=== PATIENT | female | born 2000 | race Hispanic/Latino ===

== ENCOUNTER 2024-12-07 15:20 | Emergency (ER) | payer SELFPAY ==
--- NOTE | ~2024-12-07 | US_ITS ---
EXAMINATION: US OB <= 14 weeks fetus INDICATION: abdominal cramping, vaginal bleeding TECHNIQUE: Sonography of the pelvis was performed by transabdominal techniques. COMPARISON: None. RESULT: Uterus: 8.4 x 5.5 x 7.3 cm. Anteverted. Homogenous myometrium. Intrauterine gestational sac: Single present. Mean Sac Diameter: 2.19 cm, corresponding gestational age 7 week 1 days. Yolk sac: 0.6 cm . Embryo: Single present. [place] rump length: 1.44 cm, corresponding gestational age 7 weeks, 5 days. G estational heart rate: present 159 bpm. Subgestational hematoma: Present, measuring 1.2 x 0.3 x 0.3 cm . Right ovary: 3.2 x 1.4 x 1.6 cm. Vascular flow is present. No adnexal mass. Left ovary: 2.7 x 1.8 x 1.8 cm. Vascular flow is present. No adnexal mass. Pelvis free fluid: None. IMPRESSION: Single, live intrauterine gestation. Small subgestational hematoma. Estimated Gestational Age: 7 weeks, 5 days by crown rump length. KAREN by ultrasound 07/23/2025. Reviewed, dictated and finalized at location K. IMPRESSION: Single, live intrauterine gestation. Small subgestational hematoma. Estimated Gestational Age: 7 weeks, 5 days by crown rump length. KAREN by ultras ound 07/23/2025.
[2024-12-07 15:32] VITALS: BP 103/65; PULSE 64; RESP 16; TEMP 36.8; O2SAT 100
--- NOTE | 2024-12-07 15:41 | ED_ITS ---
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 States that this started today. States while she was on the toilet she knows to few drops of blood in the toilet bowl. States that she has not had any cramping today although triage note did mention patient having abdominal cramping. Patient states that she was seen a couple of weeks ago at [facility] and tested positive for . She was told that she needed to have an ultrasound but unable to get this done outpatient. Denies any episodes of heavy bleeding. This would be her 1st make her . Denies any history of miscarriage. Denies lightheadedness, syncope, numbness, weakness, chest pain, shortness of breath, nausea, vomiting, diarrhea, urinary symptom. Denies any other medical history. LNMP from 09/29/24-10/05/24 Related Data Allergies Allergy/AdvReac Type Severity Reaction Status Date / Time No Known Allergies Allergy Verified 12/07/24 15:23 Review of Systems 2 Review of Systems: All systems as dictated in HPI Exam 2 Narrative: GENERAL: Well-appearing, well-nourished, and in no acute distress. HEAD: Normocephalic, atraumatic. EYES: PERRLA and EOMI. ENT: Nares clear, no rhinorrhea or epistaxis. Mucous membranes moist. Oropharynx without tonsillar hypertrophy exudate or other lesions. NECK: Supple. No adenopathy or masses. CHEST: No respiratory distress. Clear to auscultation. No wheezes rales or rhonchi HEART: Regular rate and rhythm. No murmur heard. Normal peripheral pulses. ABDOMEN: Soft, nontender, nondistended, normal active bowel sounds. MSK: Normal range of motion. No edema. SKIN: Warm, dry, no rash. NEURO: Alert and oriented x4. No focal deficits. PSYCH: Normal mood and affect. Course Vital Signs Vital signs: Vital Signs Temperature 98.3 F 12/07/24 15:32 Pulse Rate 64 12/07/24 15:32 Respiratory Rate 16 12/07/24 15:32 Blood Pressure 103/65 12/07/24 15:32 Pulse Oximetry 100 12/07/24 15:32 Temperature 98.3 F 12/07/24 15:32 Pulse Rate 64 12/07/24 15:32 Respiratory Rate 16 12/07/24 15:32 Blood Pressure 103/65 12/07/24 15:32 Pulse Oximetry 100 12/07/24 15:32 MDM - Female Genitourinary MDM Narrative Medical decision making narrative: This is a 24-year-old female who presents to the ED for chief complaint of vaginal bleed during . . Vitals are normal. Exam is unremarkable overall. She is resting comfortably. Lab work lab work shows normal CBC and unremarkable CMP overall. Beta hCG at 53,437. No RhoGAM required today. Obstetrical ultrasound: IMPRESSION: Single, live intrauterine gestation. Small subgestational hematoma. Estimated Gestational Age: 7 weeks, 5 days by crown rump length. KAREN by ultrasound 07/23/2025. Patient is well-appearing on re-evaluation. She feels ready to go home. We discussed the results of workup and ultrasound. I advised that it is still good to take precaution for possible miscarriage, however the above findings are reassuring overall. She has established OB follow-up and will get in touch with them this week. Patient will be discharged in stable condition. Supportive measures discussed and return precautions given. Patient is understanding and agreeable with plan for discharge with PCP follow-up. Lab Data 12/07/24 16:07 12/07/24 16:07 Labs: Lab Results 12/07/24 Range/Units 16:07 WBC 10.1 H (4.5-10.0) K/mm3 RBC 3.92 L (4.2-5.4) M/mm3 Hgb 12.2 (12.0-15.0) g/dL Hct 36.4 L (37.0-47.0) % MCV 92.9 (80-100) fl MCH 31.1 (26-34) pg MCHC 33.5 (32-36) g/dl RDW 12.0 (11.5-14.5) % Plt Count 326 (150-375) k/mm3 MPV 9.1 (7.4-10.4) fl Immature Gran % (Auto) 0.6 H (0-0.5) % Neut % (Auto) 72.5 (45.5-73.1) % Lymph % (Auto) 20.7 (18.3-44.2) % Wetzel % (Auto) 4.9 (2.6-8.5) % Eos % (Auto) 1.0 (0-4.4) % Baso % (Auto) 0.3 (0.2-1.2) % Lymph # (Auto) 2.09 (0.9-3.2) K/mm3 Wetzel # (Auto) 0.5 (0.1-0.6) K/mm3 Eos # (Auto) 0.1 (0-0.3) K/mm3 Baso # (Auto) 0.0 (0.0-0.1) K/mm3 Abs Immat Gran (auto) 0.06 H (0.00-0.031) K/mm3 Absolute Neuts (auto) 7.3 H (1.3-6.7) K/mm3 Absolute Nucleated RBC 0.000 (0.0-0.012) K/mm3 Nucleated RBC % 0.0 (0.0-0.2) % PT 14.2 (11.1-14.7) Seconds INR 1.1 APTT 23.6 (22.3-36.8) Seconds Sodium 137 (137-145) mmol/L Potassium 4.0 (3.4-5.0) mmol/L Chloride 102 (98-107) mmol/L Carbon Dioxide 21 L (22-30) mmol/L Anion Gap 14 H (4-12) mmol/L BUN 12 (7-17) mg/dL Creatinine 0.53 L (0.7-1.0) mg/dL Estim Creat Clear Calc 116 ml/min Estimated GFR > 60 (59 - ) Glucose 99 (65-110) mg/dL Calcium 9.6 (8.4-10.2) mg/dL Total Bilirubin 0.5 (0.2-1.3) mg/dL AST 21 (14-36) U/L ALT 20 (6-35) U/L Alkaline Phosphatase 54 (38-126) U/L Total Protein 8.0 (6.3-8.2) g/dL Albumin 4.8 (3.5-5.1) g/dL Beta HCG, Quant 86512.00 mIU/ML Blood Type O Positive Antibody Screen Negative Screen Not Reportable Baby's Blood Type Not Reportable Baby's DASIA Not Reportable Doses of RhIg Required 0 Discharge Plan Discharge Clinical Impression: Vaginal bleeding affecting early , Intrauterine , Subchorionic hematoma in first trimester Patient Disposition: Home, Self-Care Condition: Stable Instructions: Antibiotic Form Additional Instructions: Your exam today does show a single live in the uterus. There is a small area of bleeding that should self resolve. It is very important that you call your OB office for follow-up on this issue. If you have any new or worsening symptoms please return to the ER for further evaluation. Patient Language: [place] Follow-up/Referrals: Robin Nielsen MD [Physician] - PHYSICIAN,PHOTOGRAPH DEVELOPER [Primary Care Provider] - Time of Disposition: 17:39
--- OUTSIDE RECORDS SUMMARY | 2024-12-07 16:07 | XMS_ITS | Referral Summary ---
Author Organization [facility] Address [address] [place] [address] Care Team Providers Care Fern Cutter Name Role Phone No, Physician Primary Care Provider [phone] Encounters Date Type Department Care Team Description 11/26/2024 12:33 PM MOLD CLOSER HELPER - 11/26/2024 2:19 PM [facility] Emergency Department [address] [place] [id number] Abdominal pain during in first trimester (Primary Dx); Threatened miscarriage in early Discharge Disposition: Discharge to home or self care 11/25/2024 - 11/26/2024 1:04 AM [facility] Emergency Department [address] [place] [phone] Discharge Disposition: ED Dismiss - Never Arrived from Last 3 Months Allergies No known active allergies Medications vit 53-igph-[id number]-d real 27mg iron- 800 mcg-250 mg capsule Take 1 tablet/capsu le by mouth daily 30 capsule 11/26/2024 Active doxylamine-pyri doxine, vit B6, (DICLEGIS) 10-10 mg tablet Take 1 tablet by mouth nightly as needed for nausea 30 tablet 11/26/2024 Active Social History Tobacco Use Types Packs/Day Years Used Date Smoking Tobacco: Never Assessed Personal Safety Answer Date Recorded Have you ever been in or are you currently in a harmful physical or emotional relationship or is someone making you feel afraid or unsafe? Denies 11/26/2024 Comments Yes Sex and Gender Information Value Date Recorded Sex Assigned at Not on file Legal Sex Female 7:27 PM MOLD CLOSER HELPER Gender Identity Female 11/26/2024 11:52 AM MOLD CLOSER HELPER Sexual Orientation Not on file Last Filed Vital Signs Vital Sign Reading Time Taken Comments Blood Pressure 101/54 11/26/2024 2:00 PM MOLD CLOSER HELPER Pulse 58 11/26/2024 2:00 PM MOLD CLOSER HELPER Temperature 36.7 C (98 F) 11/26/2024 10:56 AM MOLD CLOSER HELPER Respiratory Rate 16 11/26/2024 2:00 PM MOLD CLOSER HELPER Oxygen Saturation 100% 11/26/2024 2:00 PM MOLD CLOSER HELPER Inhaled Oxygen Concentration - - Weight 52.7 kg (116 lb 2.9 oz) 11/26/2024 10:56 AM MOLD CLOSER HELPER Height 152.4 cm (5') 11/26/2024 10:56 AM MOLD CLOSER HELPER Body Mass Index 22.69 11/26/2024 10:56 AM MOLD CLOSER HELPER Plan of Treatment Not on file Procedures Procedure Name Priority Date/Time Associated Diagnosis Comments US OB TRANSVAGINAL ED 11/26/2024 11 :56 AM MOLD CLOSER HELPER URINALYSIS, MICROSCOPIC ONLY STAT 11/26/2024 11:13 AM MOLD CLOSER HELPER URINALYSIS AND REFLEX TO MICROSCOPIC AND CULTURE STAT 11/26/2024 11:13 AM MOLD CLOSER HELPER POCT HCG, URINE Routine 11/26/2024 11:09 AM MOLD CLOSER HELPER EGFR STAT 11/26/2024 11:08 AM MOLD CLOSER HELPER DIFFERENTIAL AUTO STAT 11/26/2024 11: 08 AM MOLD CLOSER HELPER ANTIBODY SCREEN STAT 11/26/2024 11:08 AM MOLD CLOSER HELPER ABO/RH STAT 11/26/2024 11:08 AM MOLD CLOSER HELPER TYPE AND SCREEN STAT 11/26/2024 11:08 AM MOLD CLOSER HELPER HCG, BLOOD, QUANTITATIVE STAT 11/26/2024 11:08 AM MOLD CLOSER HELPER LIPASE STAT 11/26/2024 11:08 AM MOLD CLOSER HELPER COMPREHENSIVE METABOLIC PANEL STAT 11/26/2024 11:08 AM MOLD CLOSER HELPER CBC WITH AUTO DIFFERENTIAL STAT 11/26/2024 11:08 AM MOLD CLOSER HELPER from Last 3 Months Results * US Ob Transvaginal (11/26/2024 11:56 AM MOLD CLOSER HELPER) Anatomical Region Laterality Modality Abdomen N/A Ultrasound 11/26/2024 12:2 3 PM MOLD CLOSER HELPER Narrative 11/26/2024 12:26 PM MOLD CLOSER HELPER EXAM DESCRIPTION: US OB TRANSVAGINAL REASON FOR STUDY: rule out ectopic Abdominal pain for couple of days. Beta-hCG: Not available TECHNIQUE: Transvaginal images acquired of the pelvis. COMPARISON: None FINDINGS Intrauterine gestational sac: Present Yolk sac: Present and measures 0.3 cm. Subchorionic bleed: No Mettler-rump length: 0.53 cm heart rate: 98 bpm Gestational age by this ultrasound: 6 weeks 2 days KAREN by this ultrasound: 07/20/2025 Uterus: The uterus is anteverted , measuring 8.6 x 6.2 x 4.7 cm. Right Ovary/Adnexa: The right ovary measures 2.8 x 2.8 x 2.4 cm. There is documentation of color Doppler flow in the right ovary. There is a corpus luteum noted in the right ovary measuring 2.0 x 1.8 x 1.7 cm. Left Ovary/Adnexa: The left ovary measures 2.7 x 1.7 x 1.4 cm. There is documentation of color Doppler flow in the left ovary. The left ovary appears unremarkable. No adnexal mass. Free Fluid: None. Other Findings: None. IMPRESSION: 1. Single live intrauterine gestation with gestational age by the this ultrasound of 6 weeks 3 days and documentation of cardiac activity at 98 beats per minute. Short-term follow-up repeat ultrasound is recommended to assess for viability as clinically indicated. 2. Right ovarian corpus luteum measuring up to 2.0 cm. THIS IS AN ELECTRONICALLY VERIFIED FINAL REPORT 11/26/2024 12:26 PM - Electronically signed by Carlos Dueñas D.O. PS: PS Report ID: [id number] Reading Location: [id number] Procedure Note Carlos Dueñas DO - 11/26/2024 EXAM DESCRIPTION: US OB TRANSVAGINAL REASON FOR STUDY: rule out ectopic Abdominal pain for couple of days. Beta-hCG: Not available TECHNIQUE: Transvaginal images acquired of the pelvis. COMPARISON: None FINDINGS Intrauterine gestational sac: Present Yolk sac: Present and measures 0.3 cm. Subchorionic bleed: No Mettler-rump length: 0.53 cm heart rate: 98 bpm Gestational age by this ultrasound: 6 weeks 2 days KAREN by this ultrasound: 07/20/2025 Uterus: The uterus is anteverted , measuring 8.6 x 6.2 x 4.7 cm. Right Ovary/Adnexa: The right ovary measures 2.8 x 2.8 x 2.4 cm. Thereis documentation of color Doppler flow in the right ovary. There is a corpus luteum noted in the right ovary measuring 2.0 x 1.8 x 1.7 cm. Left Ovary/Adnexa: The left ovary measures 2.7 x 1.7 x 1.4 cm. There is documentation of color Doppler flow in the left ovary. The left ovaryappears unremarkable. No adnexal mass. Free Fluid: None. Other Findings: None. IMPRESSION: 1. Single live intrauterine gestation with gestational age by the this ultrasound of 6 weeks 3 days and documentation of cardiac activityat 98 beats per minute. Short-term follow-up repeat ultrasound is recommendedto assess for viability as clinically indicated. 2. Right ovarian corpus luteum measuring up to 2.0 cm. THIS IS AN ELECTRONICALLY VERIFIED FINAL REPORT 11/26/2024 12:26 PM - Electronically signed by Carlos Dueñas D.O. PS: PS Report ID: [id number] Reading Location: [id number] us Dia BALTAZAR IMG OB US PROCEDURES Final Resu lt * (ABNORMAL) Urinalysis reflex to microscopic and culture Urine (11/26/2024 11:13 AM MOLD CLOSER HELPER) Color, ur Yellow Yellow Comment:Testing performed by : [address] [address] Clarity, ur Cloudy(A) Clear RAJI Comment:Testing performed by : [address] [address] Specific gravity, ur 1.024 1.003 - 1.030 RAJI Comment:Testing performed by : [address], [place]., [address] pH, urine 6.5 RAJI Comment: Interpretive Data U rine pH is affected by diet, medications, systemic acid-base disturbances, and renal tubular function. pH may affect urinary stone formation. For example, urine pH below 6.0 may help reduce the tendency for calcium phosphate stones and pH greater than 6.0 may reduce the tendency for uric acid stone formation. Source: [facility] [employer] Current Interpretive Data was last revised on 2017 Testing performed by: [address] [address] Protein, ur ql Negative Negative RAJI Comment:Testing performed by : [address] [address] Glucose, ur ql Negative Negative RAJI Comment:Testing performed by : [address] [address] Ketones, ur Negative Negative RAJI Comment:Testing performed by : [address] [address] Bilirubin, ur Negative Negative RAJI Comment:Testing performed by : [address] [address] Blood, ur 1+(A) Negative RAJI Comment:Testing performed by : [address] [address] Urobilinogen, ur <2.0 <2.0 mg/dL RAJI Comment:Testing performed by : [address] [address] Nitrite, ur Negative Negative RAJI Comment:Testing performed by : [address] [address] Leukocyte esterase, ur 2+(A) Negative RAJI Comment:Testing performed by : [address] [address] UA reflex comment Reflex to microscopic UA will be performed. RAJI Comment:Testing performed by : [address] [address] Urine 11/26/2024 11:1 3 AM MOLD CLOSER HELPER 11/26/2024 11:39 AM MOLD CLOSER HELPER Coy Brothers MD LAB MICROBIOLOGY - GENERAL ORDERABLES Final Result CARLANANCY [address] [facility] Department [place] [address] * (ABNORMAL) Urinalysis, microscopic only (11/26/2024 11:13 AM MOLD CLOSER HELPER) WBC, ur 6-10(A) 0 - 5 /HPF Comment:Testing performed by : [facility], [address] [place] [address]., [address] RBC, ur 6-10(A) 0 - 2 /HPF RAJI Comment:Testing performed by : [address] [address] Epithelial cells, squamous, ur >50(A) 0 - 5 /HPF RAJI Comment:Testing performed by : [address] [address] Bacteria, ur Trace(A) RAJI Comment:Testing performed by : [address] [address] Yeast, ur 1+(A) RAJI Comment:Testing performed by : [address] [address] Mucous, ur Present(A) RAJI Comment:Testing performed by : [address] [address] Culture Reflex Comment Reflex conditions for urine culture (WBC >10) not met. RAJI Comment:Testing performed by : [address] [address] Urine 11/26/2024 11:1 3 AM MOLD CLOSER HELPER 11/26/2024 11:39 AM MOLD CLOSER HELPER Coy Brothers MD LAB URINE ORDERABLE S Final Result RAJI [address] [facility] Department [place] [address] * (ABNORMAL) POCT hCG, urine (11/26/2024 11:09 AM MOLD CLOSER HELPER) HCG, ur, POC Positive(A) Negative Lot Number [id number] QC Backgroud Clear Acceptable QC Control Line Acceptable Urine 11/26/2024 11:0 9 AM MOLD CLOSER HELPER Coy Brothers MD POINT OF CARE TEST ORDERABLES Final Result * eGFR (11/26/2024 11:08 AM MOLD CLOSER HELPER) Pathologist [facility] [place] eGFR >90 >=60 mL/min/1. 73 m2 Comment: Interpretive Data Reference Interval Normal >/= 90 mL/min/1.73m2 Mildly decreased* 60 - 89 mL/min/1.73m2 Mildly to moderately decreased 45 - 59 mL/min/1.73m2 Moderately to severely decreased 30 - 44 mL/min/1.73m2 Severely decreased 15 - 29 mL/min/1.73m2 Kidney Failure < 15 mL/min/1.73m2 *Relative to young adult level Estimated glomerular filtration rate is determined by the 2020 CKD-EPI equation recommended by the National Kid[employer] (A Unifying Approach to GFR Estimation: Recommendations of the NKF-ASK Task Force on Reassessing the Inclusion of Race in Diagnosing Kidney Disease, JASN 2020). The CKD-EPI equation should not be used for patients with unstable renal function and has not been validated in children and those over 70. Current interpretive data was last reviewed 2021. Testing performed by: [facility], [address] [place] [address]., [address] Blood 11/26/2024 11:0 8 AM MOLD CLOSER HELPER 11/26/2024 11:15 AM MOLD CLOSER HELPER Coy Brothers MD LAB BLOOD ORDERABLE S Final Result RAJI [address] [facility] Department [place] [address] * Differential, auto (11/26/2024 11:08 AM MOLD CLOSER HELPER) Neutrophil abs 5.5 1.5 - 6.5 K/cumm Comment:Testing performed by : [address] [address] Imm gran abs 0.0 0.0 - 0.1 K/cumm RAJI Comment:Testing performed by : [address] [address] Lymphocyte abs 1.1 0.8 - 3.3 K/cumm RAJI Comment:Testing performed by : [address] [address] Monocyte abs 0.4 0.2 - 0.8 K/cumm RAJI Comment:Testing performed by : [address] [address] Eosinophil abs 0.1 0.0 - 0.5 K/cumm RAJI Comment:Testing performed by : [address] [address] Basophil abs 0.0 0.0 - 0.1 K/cumm RAJI Comment:Testing performed by : [address] [address] Neutrophil pct 76.4 % RAJI Comment: Interpretive Data Percent cell count reference ranges are not reported, since discordance with absolute values may lead to misinterpretation of CBC data. Current Interpretive Data was last revised on 2018. Testing performed by: [address] [address] Imm gran pct 0.6 % RAJI Comment: Interpretive Data Percent cell count reference ranges are not reported, since discordance with absolute values may lead to misinterpretation of CBC data. Current Interpretive Data was last revised on 2018. Testing performed by: [address] [address] Lymphocyte pct 15.6 % RAJI Comment: Interpretive Data Percent cell count reference ranges are not reported, since discordance with absolute values may lead to misinterpretation of CBC data. Current Interpretive Data was last revised on 2018. Testing performed by: [address] [address] Monocyte pct 5.9 % RAJI Comment: Interpretive Data Percent cell count reference ranges are not reported, since discordance with absolute values may lead to misinterpretation of CBC data. Current Interpretive Data was last revised on 2018. Testing performed by: [address] [address] Eosinophil pct 1.4 % RAJI Comment: Interpretive Data Percent cell count reference ranges are not reported, since discordance with absolute values may lead to misinterpretation of CBC data. Current Interpretive Data was last revised on 2018. Testing performed by: [address] [address] Basophil pct 0.1 % RAJI Comment: Interpretive Data Percent cell count reference ranges are not reported, since discordance with absolute values may lead to misinterpretation of CBC data. Current Interpretive Data was last revised on 2018. Testing performed by: [address] [address] Blood 11/26/2024 11:0 8 AM MOLD CLOSER HELPER 11/26/2024 11:16 AM MOLD CLOSER HELPER us Coy Brothers MD LAB BLOOD ORDERABLE S Final Result [facility] [address] [facility] Department [place] [address] * CBC with auto differential (11/26/2024 11:08 AM MOLD CLOSER HELPER) WBC 7.2 3.8 - 9.9 K/cumm Comment:Testing performed by : [address] [address] Hgb 12.2 11.9 - 15.5 g/dL RAJI TANNER Comment:Testing performed by : [address] [address] Hct 36.4 35.6 - 45.5 % RAJI Comment:Testing performed by : [address] [address] Plt 314 150 - 400 K/cumm RAJI TANNER Comment:Testing performed by : [address] [address] MPV 9.1 9.1 - 12.3 fL RAJI TANNER Comment:Testing performed by : [address] [address] RBC 3.92 3.90 - 5.20 M/cumm RAJI TANNER Comment:Testing performed by : [address] [address] MCV 92.9 81.3 - 96.4 fL RAJI Comment:Testing performed by : [address] [address] MCH 31.1 27.1 - 33.3 pg RAJI TANNER Comment:Testing performed by : [address], [address] MCHC 33.5 32.3 - 35.7 g/dL RAJI Comment:Testing performed by : [address], [address] RDW CV 12.3 11.1 - 14.9 % RAJI Comment:Testing performed by : [address] [address] RDW SD 42.1 35.7 - 48.1 fL RAJI Comment:Testing performed by : [address] [address] NRBC abs 0.00 0.00 - 0.01 K/cumm RAJI Comment:Testing performed by : [address] [address] Blood Venous blood specimen / Unknown 11/26/2024 11:08 AM MOLD CLOSER HELPER 11/26/2024 11:16 AM MOLD CLOSER HELPER us Coy Brothers MD LAB BLOOD ORDERABLE S Final Result RAJI [address] [facility] Department [place] [address] * ABO/Rh (11/26/2024 11:08 AM MOLD CLOSER HELPER) Pathologist [facility] [place] ABO/Rh O Positive Comment:Testing performed by : [address] [address] Blood 11/26/2024 11:0 8 AM MOLD CLOSER HELPER 11/26/2024 11:15 AM MOLD CLOSER HELPER Narrative [facility] - 11/26/2024 11:46 AM MOLD CLOSER HELPER Has the patient had Daratumumab or Isatuximab in the past 6 months?->Unknown Coy Brothers MD LAB BLOOD BANK TEST ORDERABLES Final Result Performing Organization Address [facility] de Phone Number [address] [place] [employer] [place] [address] * Antibody screen (11/26/2024 11:08 AM MOLD CLOSER HELPER) [facility] Lali, indirect, Gel Interpretation Negative ABSC Comment:Testing performed by : [facility], [address] [place] [address]., [address] Blood 11/26/2024 11:0 8 AM MOLD CLOSER HELPER 11/26/2024 11:15 AM MOLD CLOSER HELPER Narrative [facility] - 11/26/2024 11:54 AM MOLD CLOSER HELPER Has the patient had Daratumumab or Isatuximab in the past 6 months?->Unknown Coy Brothers MD LAB BLOOD BANK TEST ORDERABLES Final Result Performing Organization Address [facility] de Phone Number [address] [place] [place] [address] * (ABNORMAL) hCG, blood, quantitative (11/26/2024 11:08 AM MOLD CLOSER HELPER) [facility] hCG, quant 25,550.0( H) 0.0 - 5.0 IUnits/L Comment: Interpretive Data Male: < 5 IU/L Non- premenopausal Female: <5 IU/L The Rachid hCG Beta Quant assay procedure was used. Results from different manufacturers or methods may not be comparable. Serial testing should be performed using the same method. Interpretive Data was last revised on 2023 Testing performed by: [address] [address] Blood 11/26/2024 11:0 8 AM MOLD CLOSER HELPER 11/26/2024 11:15 AM MOLD CLOSER HELPER Coy Brothers MD LAB BLOOD ORDERABLE S Final Result Performing Organization Address [facility] Co de Phone Number [address] [place] [place] [address] * Lipase (11/26/2024 11:08 AM MOLD CLOSER HELPER) [facility] Lipase 26 10 - 99 Units/L Comment:Testing performed by : [address] [address] Blood Venous blood specimen / Unknown 11/26/2024 11:08 AM MOLD CLOSER HELPER 11/26/2024 11:15 AM MOLD CLOSER HELPER Coy Brothers MD LAB BLOOD ORDERABLE S Final Result Performing Organization Address [facility] de Phone Number [address] [address] * (ABNORMAL) Comprehensive metabolic panel (11/26/2024 11:08 AM MOLD CLOSER HELPER) [facility] Sodium 137 135 - 145 mmol/L Comment:Testing performed by : [address] [address] Potassium, pl 3.7 3.3 - 4.9 mmol/L RAJI Comment:Testing performed by : [address] [address] Chloride 103 97 - 110 mmol/L RAJI Comment:Testing performed by : [address] [address] CO2 23 22 - 32 mmol/L RAJI Comment:Testing performed by : [address] [address] Anion gap 11 2 - 15 mmol/L RAJI Comment:Testing performed by : [address] [address] BUN 9 6 - 25 mg/dL RAJI Comment:Testing performed by : [address] [address] Creatinine 0.54(L) 0.60 - 1.10 mg/dL RAJI Comment:Testing performed by : [address] [address] Glucose 88 70 - 199 mg/dL RAJI Comment: Interpretive Data Fasting glucose >/= 126 mg/dl is diagnostic for diabetes. Fasting is defined as no caloric intake for at least 8 hours. Fasting glucose between 100 mg/dl to 125 mg/dl is diagnostic of prediabetes. In a patient with classic symptoms of hyperglycemia or hyperglycemic crisis, a random glucose >/= 200 mg/dl is diagnostic for diabetes. In the absence of unequivocal hyperglycemia, results should be confirmed by repeat testing. The classification and Diagnosis of Diabetes Diabetes Care 2021; 46: S19-S40. Current interpretive data was last revised 2022. Testing performed by: [address] [address] Calcium 9.9 8.5 - 10.3 mg/dL RAJI Comment:Testing performed by : [address] [address] Bilirubin, total 0.9 0.1 - 1.2 mg/dL RAJI Comment:Testing performed by : [address] [address] Protein, pl 7.5 6.5 - 8.5 g/dL RAJI Comment:Testing performed by : [address] [address] Albumin 4.6 3.5 - 5.0 g/dL RAJI Comment:Testing performed by : [address] [address] Alk phos 55 40 - 130 Units/L RAJI Comment:Testing performed by : [address] [address] ALT 15 7 - 45 Units/L RAJI Comment:Testing performed by : [address], [place]., [address] AST 18 10 - 45 Units/L RAJI TANNER Comment:Testing performed by : [facility], [address] [place] [address]., [address] Blood 11/26/2024 11:0 8 AM MOLD CLOSER HELPER 11/26/2024 11:15 AM MOLD CLOSER HELPER us Coy Brothers MD LAB BLOOD ORDERABLE S Final Result RAJI TANNER [address] [facility] Department of Laboratories [place], [place] [id number] from Last 3 Months Care Teams Fern Cutter Relationship Specialty Start Date End Date No, Physician PCP - General 11/26/24
--- OUTSIDE RECORDS SUMMARY | 2024-12-07 16:07 | XMS_ITS | Clinical Summary ---
Author Organization [facility] Address [address] [place] [address] Care Team Providers Care [employer] Equipment Tender Name Role Phone No, Physician Primary Care Provider [phone] Allergies No known active allergies Medications vit 60-gmrp-pomyx-d real 27mg iron- 800 mcg-250 mg capsule Take 1 tablet/capsu le by mouth daily 30 capsule 11/26/2024 Active doxylamine-pyri doxine, vit B6, (DICLEGIS) 10-10 mg tablet Take 1 tablet by mouth nightly as needed for nausea 30 tablet 11/26/2024 Active Encounters Date Type Department Care Team Description 11/26/2024 12:33 PM PROCESS STEWARD - 11/26/2024 2:19 PM [facility] Emergency Department [address] [place] [address] Abdominal pain during in first trimester (Primary Dx); Threatened miscarriage in early Discharge Disposition: Discharge to home or self care 11/25/2024 - 11/26/2024 1:04 AM [facility] Emergency Department [address] [place] [address] Discharge Disposition: ED Dismiss - Never Arrived from Last 3 Months Social History Tobacco Use Types Packs/Day Years [...] on file Legal Sex Female 7:27 PM PROCESS STEWARD Gender Identity Female 11/26/2024 11:52 AM PROCESS STEWARD Sexual Orientation Not on file Obstetrics History Para Term AB IAB SAB Ectopic Multiple Livin g Live Births 1 Date Outcome GA Total Labor Labor/2nd/3rd Weight Sex Type Anes PTL Stephanie A1 A5 Name Clin Current Last Filed Vital Signs Vital Sign Reading Time Taken Comments Blood Pressure 101/54 11/26/2024 2:00 PM PROCESS STEWARD Pulse 58 11/26/2024 2:00 PM PROCESS STEWARD Temperature 36.7 C (98 F) 11/26/2024 10:56 AM PROCESS STEWARD Respiratory Rate 16 11/26/2024 2:00 PM PROCESS STEWARD Oxygen Saturation 100% 11/26/2024 2:00 PM PROCESS STEWARD Inhaled Oxygen Concentration - - Weight 52.7 kg (116 lb 2.9 oz) 11/26/2024 10:56 AM PROCESS STEWARD Height 152.4 cm (5') 11/26/2024 10:56 AM PROCESS STEWARD Body Mass Index 22.69 11/26/2024 10:56 AM PROCESS STEWARD Plan of Treatment Health Maintenance Due Date Last Done Comments Cervical Cancer Screening 2002 Depression Screening 2002 Hepatitis C Screening 2002 DTaP/Tdap/Td Vaccine (1 - Tdap) 2013 Varicella Vaccines (1 of 2 - 13+ 2-dose series) 2015 HPV Vaccines (1 - 3-dose series) 2017 Meningococcal B Vaccine (1 o f 2 - Standard) 2018 Hepatitis B Screening 01/30/2020 Regular Well Visit/Exam 18-64 01/30/2020 Influenza Vaccine (#1) 2024 Pneumococcal vaccine <65 Aged Out No longer eligible based on patient's age to complete this topic Procedures Procedure Name Priority Date/Time Associated Diagnosis Comments US OB TRANSVAGINAL ED 11/26/2024 11 :56 AM PROCESS STEWARD URINALYSIS, MICROSCOPIC ONLY STAT 11/26/2024 11:13 AM PROCESS STEWARD URINALYSIS AND REFLEX TO MICROSCOPIC AND CULTURE STAT 11/26/2024 11:13 AM PROCESS STEWARD POCT HCG, URINE Routine 11/26/2024 11:09 AM PROCESS STEWARD EGFR STAT 11/26/2024 11:08 AM PROCESS STEWARD DIFFERENTIAL AUTO STAT 11/26/2024 11: 08 AM PROCESS STEWARD ANTIBODY SCREEN STAT 11/26/2024 11:08 AM PROCESS STEWARD ABO/RH STAT 11/26/2024 11:08 AM PROCESS STEWARD TYPE AND SCREEN STAT 11/26/2024 11:08 AM PROCESS STEWARD HCG, BLOOD, QUANTITATIVE STAT 11/26/2024 11:08 AM PROCESS STEWARD LIPASE STAT 11/26/2024 11:08 AM PROCESS STEWARD COMPREHENSIVE METABOLIC PANEL STAT 11/26/2024 11:08 AM PROCESS STEWARD CBC WITH AUTO DIFFERENTIAL STAT 11/26/2024 11:08 AM PROCESS STEWARD from Last 3 Months Results * US Ob Transvaginal (11/26/2024 11:56 AM PROCESS STEWARD) Anatomical Region Laterality Modality Abdomen N/A Ultrasound 11/26/2024 12:2 3 PM PROCESS STEWARD Narrative 11/26/2024 12:26 PM PROCESS STEWARD EXAM DESCRIPTION: US OB TRANSVAGINAL REASON FOR STUDY: rule out ectopic Abdominal pain for couple of days. Beta-hCG: Not available TECHNIQUE: Transvaginal images acquired of the pelvis. COMPARISON: None FINDINGS Intrauterine gestational sac: Present Yolk sac: Present and measures 0.3 cm. Subchorionic bleed: No Farnam-rump length: 0.53 cm heart rate: 98 bpm [...] Carlos Dueñas D.O. PS: PS Report ID: [id number] Reading Location: [id number] Procedure Note Carlos Dueñas, DO - 11/26/2024 EXAM DESCRIPTION: US OB TRANSVAGINAL REASON FOR STUDY: rule out ectopic Abdominal pain for couple of days. Beta-hCG: Not available TECHNIQUE: Transvaginal images acquired of the pelvis. COMPARISON: None FINDINGS Intrauterine gestational sac: Present Yolk sac: Present and measures 0.3 cm. Subchorionic bleed: No Farnam-rump length: 0.53 cm heart rate: 98 bpm [...] Carlos Dueñas D.O. PS: PS Report ID: [id number] Reading Location: [place] [address] us Dia BALTAZAR IMG OB US PROCEDURES Final Resu lt * (ABNORMAL) Urinalysis reflex to microscopic and culture Urine (11/26/2024 11:13 AM PROCESS STEWARD) Color, ur Yellow Yellow Comment:Testing performed by : [address] [address] Clarity, ur Cloudy(A) Clear RAJI Comment:Testing performed by : [address] [address] Specific gravity, ur 1.024 1.003 - 1.030 RAJI Comment:Testing performed by : [address] [address] pH, urine 6.5 RAJI Comment: Interpretive Data U rine pH is affected by diet, medications, systemic acid-base disturbances, and renal tubular function. pH may affect urinary stone formation. For example, urine pH below 6.0 may help reduce the tendency for calcium phosphate stones and pH greater than 6.0 may reduce the tendency for uric acid stone formation. Source: meinKauf Current Interpretive Data was last revised on 2017 Testing performed by: [address] [address] Protein, ur ql Negative Negative RAJI Comment:Testing performed by : [address] [address] Glucose, ur ql Negative Negative RAJI Comment:Testing performed by : [address] [address] Ketones, ur Negative Negative RAJI Comment:Testing performed by : [address] [address] Bilirubin, ur Negative Negative RAJI Comment:Testing performed by : [address], [place]., [address] Blood, ur 1+(A) Negative RAJI TANNER Comment:Testing performed by : [facility], [address] [place] [address], [place]., [address] Urobilinogen, ur <2.0 <2.0 mg/dL RAJI Comment:Testing performed by : [address], [place]., [address] Nitrite, ur Negative Negative RAJI Comment:Testing performed by : [address], [place]., [address] Leukocyte esterase, ur 2+(A) Negative RAJI Comment:Testing performed by : [address], [place]., [address] UA reflex comment Reflex to microscopic UA will be performed. RAJI Comment:Testing performed by : [address], [place]., [address] Urine 11/26/2024 11:1 3 AM PROCESS STEWARD 11/26/2024 11:39 AM PROCESS STEWARD us Coy Brothers MD LAB MICROBIOLOGY - GENERAL ORDERABLES Final Result RAJI [address] [facility] Department of Laboratories [place], [place] [id number] * (ABNORMAL) Urinalysis, microscopic only (11/26/2024 11:13 AM PROCESS STEWARD) WBC, ur 6-10(A) 0 - 5 /HPF Comment:Testing performed by : [address], [place]., [address] RBC, ur 6-10(A) 0 - 2 /HPF RAJI TANNRE Comment:Testing performed by : [address] [address] Epithelial cells, squamous, ur >50(A) 0 - 5 /HPF RAJI Comment:Testing performed by : [address], [place]., [address] Bacteria, ur Trace(A) RAJI TANNER Comment:Testing performed by : [facility], [address] [place] [address]., [address] Yeast, ur 1+(A) RAJI Comment:Testing performed by : [address] [address] Mucous, ur Present(A) RAJI Comment:Testing performed by : [address] [address] Culture Reflex Comment Reflex conditions for urine culture (WBC >10) not met. RAJI Comment:Testing performed by : [address], [place]., [address] Urine 11/26/2024 11:1 3 AM PROCESS STEWARD 11/26/2024 11:39 AM PROCESS STEWARD Coy Brothers MD LAB URINE ORDERABLE S Final Result RAJI [facility] Department [place] [address] * (ABNORMAL) POCT hCG, urine (11/26/2024 11:09 AM PROCESS STEWARD) Pathologist [facility] HCG, ur, POC Positive(A) Negative Lot Number [id number] QC Backgroud Clear Acceptable QC Control Line Acceptable Urine 11/26/2024 11:0 9 AM PROCESS STEWARD Coy Brothers MD POINT OF CARE TEST ORDERABLES Final Result * eGFR (11/26/2024 11:08 AM PROCESS STEWARD) eGFR >90 >=60 mL/min/1. 73 m2 Comment: [...] was last reviewed 2021. Testing performed by: [address] [address] Blood 11/26/2024 11:0 8 AM PROCESS STEWARD 11/26/2024 11:15 AM PROCESS STEWARD us Coy Brothers MD LAB BLOOD ORDERABLE S Final Result RAJI [facility] Department [place] [address] * Differential, auto (11/26/2024 11:08 AM PROCESS STEWARD) Neutrophil abs 5.5 1.5 - 6.5 K/cumm Comment:Testing performed by : [address] [address] Imm gran abs 0.0 0.0 - 0.1 K/cumm RAJI Comment:Testing performed by : [address] [address] Lymphocyte abs 1.1 0.8 - 3.3 K/cumm RAJI Comment:Testing performed by : [address] [address] Monocyte abs 0.4 0.2 - 0.8 K/cumm RAJI Comment:Testing performed by : [address] [address] Eosinophil abs 0.1 0.0 - 0.5 K/cumm RAJI Comment:Testing performed by : [address] [address] Basophil abs 0.0 0.0 - 0.1 K/cumm RAJI Comment:Testing performed by : [address] [address] Neutrophil pct 76.4 % CERNER Comment: Interpretive Data Percent cell count reference ranges are not reported, since discordance with absolute values may lead to misinterpretation of CBC data. Current Interpretive Data was last revised on 2018. Testing performed by: [address] [address] Imm gran pct 0.6 % [facility] Comment: Interpretive Data Percent cell count reference ranges are not reported, since discordance with absolute values may lead to misinterpretation of CBC data. Current Interpretive Data was last revised on 2018. Testing performed by: [address] [address] Lymphocyte pct 15.6 % [facility] Comment: Interpretive Data Percent cell count reference ranges are not reported, since discordance with absolute values may lead to misinterpretation of CBC data. Current Interpretive Data was last revised on 2018. Testing performed by: [address] [address] Monocyte pct 5.9 % [facility] Comment: Interpretive Data Percent cell count reference ranges are not reported, since discordance with absolute values may lead to misinterpretation of CBC data. Current Interpretive Data was last revised on 2018. Testing performed by: [address] [address] Eosinophil pct 1.4 % CERNER Comment: Interpretive Data Percent cell count reference ranges are not reported, since discordance with absolute values may lead to misinterpretation of CBC data. Current Interpretive Data was last revised on 2018. Testing performed by: [address] [address] Basophil pct 0.1 % [facility] Comment: Interpretive Data Percent cell count reference ranges are not reported, since discordance with absolute values may lead to misinterpretation of CBC data. Current Interpretive Data was last revised on 2018. Testing performed by: [address] [address] Blood 11/26/2024 11:0 8 AM PROCESS STEWARD 11/26/2024 11:16 AM PROCESS STEWARD us Coy Brothers MD LAB BLOOD ORDERABLE S Final Result RAJI [address] [facility] Department [place] [address] * CBC with auto differential (11/26/2024 11:08 AM PROCESS STEWARD) WBC 7.2 3.8 - 9.9 K/cumm Comment:Testing performed by : [address] [address] Hgb 12.2 11.9 - 15.5 g/dL RAJI Comment:Testing performed by : [address] [address] Hct 36.4 35.6 - 45.5 % RAJI Comment:Testing performed by : [address] [address] Plt 314 150 - 400 K/cumm RAJI Comment:Testing performed by : [address] [address] MPV 9.1 9.1 - 12.3 fL RAJI Comment:Testing performed by : [address] [address] RBC 3.92 3.90 - 5.20 M/cumm RAJI Comment:Testing performed by : [address] [address] MCV 92.9 81.3 - 96.4 fL RAJI Comment:Testing performed by : [address] [address] MCH 31.1 27.1 - 33.3 pg RAJI Comment:Testing performed by : [address] [address] MCHC 33.5 32.3 - 35.7 g/dL RAJI Comment:Testing performed by : [address], [address] RDW CV 12.3 11.1 - 14.9 % RAJI Comment:Testing performed by : [address], [address] RDW SD 42.1 35.7 - 48.1 fL RAJI Comment:Testing performed by : [address] [address] NRBC abs 0.00 0.00 - 0.01 K/cumm RAJI Comment:Testing performed by : [address], [address] Blood Venous blood specimen / Unknown 11/26/2024 11:08 AM PROCESS STEWARD 11/26/2024 11:16 AM PROCESS STEWARD Coy Brothers MD LAB BLOOD ORDERABLE S Final Result Performing Organization Address [facility] Co de Phone Number CARLA[address] [place] [address] * ABO/Rh (11/26/2024 11:08 AM PROCESS STEWARD) ABO/Rh O Positive Comment:Testing performed by : [address], [address] Blood 11/26/2024 11:0 8 AM PROCESS STEWARD 11/26/2024 11:15 AM PROCESS STEWARD Narrative RAJI - 11/26/2024 11:46 AM PROCESS STEWARD Has the patient had Daratumumab or Isatuximab in the past 6 months?->Unknown Coy Brothers MD LAB BLOOD BANK TEST ORDERABLES Final Result Performing Organization Address [facility] Co de Phone Number [address] [place] [address] * Antibody screen (11/26/2024 11:08 AM PROCESS STEWARD) Lali, indirect, Gel Interpretation Negative ABSC Comment:Testing performed by : [address], [address] Blood 11/26/2024 11:0 8 AM PROCESS STEWARD 11/26/2024 11:15 AM PROCESS STEWARD Narrative RAJI - 11/26/2024 11:54 AM PROCESS STEWARD Has the patient had Daratumumab or Isatuximab in the past 6 months?->Unknown Coy Brothers MD LAB BLOOD BANK TEST ORDERABLES Final Result RAJI [address] [place] [address] * (ABNORMAL) hCG, blood, quantitative (11/26/2024 11:08 AM PROCESS STEWARD) [facility] hCG, quant 25,550.0( H) 0.0 - 5.0 IUnits/L Comment: Interpretive Data Male: < 5 IU/L Non- premenopausal Female: <5 IU/L The Rachid hCG Beta Quant assay procedure was used. Results from different manufacturers or methods may not be comparable. Serial testing should be performed using the same method. Interpretive Data was last revised on 2023 Testing performed by: [address] [address] Blood 11/26/2024 11:0 8 AM PROCESS STEWARD 11/26/2024 11:15 AM PROCESS STEWARD Coy Brothers MD LAB BLOOD ORDERABLE S Final Result Performing Organization Address [facility] Co de Phone Number CARLA[address] [place] [address] * Lipase (11/26/2024 11:08 AM PROCESS STEWARD) [facility] Lipase 26 10 - 99 Units/L Comment:Testing performed by : [address] [address] Blood Venous blood specimen / Unknown 11/26/2024 11:08 AM PROCESS STEWARD 11/26/2024 11:15 AM PROCESS STEWARD Coy Brothers MD LAB BLOOD ORDERABLE S Final Result RAJI [address] [place] [address] * (ABNORMAL) Comprehensive metabolic panel (11/26/2024 11:08 AM PROCESS STEWARD) Sodium 137 135 - 145 mmol/L Comment:Testing performed by : [address] [address] Potassium, pl 3.7 3.3 - 4.9 mmol/L RAJI Comment:Testing performed by : [address] [address] Chloride 103 97 - 110 mmol/L RAJI Comment:Testing performed by : [address] [address] CO2 23 22 - 32 mmol/L RAJI Comment:Testing performed by : [address] [address] Anion gap 11 2 - 15 mmol/L RAJI Comment:Testing performed by : [address] [address] BUN 9 6 - 25 mg/dL RAJI Comment:Testing performed by : [address], [place]., [address] Creatinine 0.54(L) 0.60 - 1.10 mg/dL [facility] Comment:Testing performed by : [address] [address] Glucose 88 70 - 199 mg/dL [facility] Comment: Interpretive Data Fasting glucose >/= 126 [...] classification and Diagnosis of Diabetes Diabetes Care 202; 46: S19-S40. Current interpretive data was last revised 2022. Testing performed by: [address] [address] Calcium 9.9 8.5 - 10.3 mg/dL ARJI Comment:Testing performed by : [address] [address] Bilirubin, total 0.9 0.1 - 1.2 mg/dL RAJI Comment:Testing performed by : [address], [address] Protein, pl 7.5 6.5 - 8.5 g/dL RAJI Comment:Testing performed by : [address], [facility], [address] Albumin 4.6 3.5 - 5.0 g/dL RAJI Comment:Testing performed by : [address], [address] Alk phos 55 40 - 130 Units/L RAJI Comment:Testing performed by : [address], [address] ALT 15 7 - 45 Units/L RAJI Comment:Testing performed by : [address], [address] AST 18 10 - 45 Units/L RAJI Comment:Testing performed by : [address], [address] Blood 11/26/2024 11:0 8 AM PROCESS STEWARD 11/26/2024 11:15 AM PROCESS STEWARD us Coy Brothers MD LAB BLOOD ORDERABLE S Final Result RAJI [address] [facility] Department of Laboratories [place], [place] [id number] from Last 3 Months Care Teams [employer] Co[employer] Equipment Tender Relationship Specialty Start Date End Date No, Physician PCP - General 11/26/24
[2024-12-07 16:12] LABS: Basophils Percent Auto 0.3 % (0.2-1.2); Eosinophils Absolute Auto 0.1 K/mm3 (0-0.3); Hematocrit 36.4 % (37.0-47.0); Hemoglobin 12.2 g/dL (12.0-15.0); Immature Granulocyte Absolute 0.06 K/mm3 (0.00-0.031); Immature Granulocyte Percent A 0.6 % (0-0.5); Lymphocytes Absolute Auto 2.09 K/mm3 (0.9-3.2); Lymphocytes Percent Auto 20.7 % (18.3-44.2); Mean Corpuscular HGB Conc 33.5 g/dl (32-36); Mean Corpuscular Hemoglobin 31.1 pg (26-34); Mean Corpuscular Volume 92.9 fl (80-100); Mean Platelet Volume 9.1 fl (7.4-10.4); Monocytes Absolute Auto 0.5 K/mm3 (0.1-0.6); Monocytes Percent Auto 4.9 % (2.6-8.5); Neutrophils Absolute Auto 7.3 K/mm3 (1.3-6.7); Neutrophils Percent Auto 72.5 % (45.5-73.1); Platelet Count Result 326 k/mm3 (150-375); Red Blood Count 3.92 M/mm3 (4.2-5.4); White Blood Count 10.1 K/mm3 (4.5-10.0)
[2024-12-07 16:26] LABS: INR 1.1; Partial Thromboplastin Time 23.6 Seconds (22.3-36.8); Prothrombin Time 14.2 Seconds (11.1-14.7)
[2024-12-07 16:30] LABS: Alanine Aminotransferase 20 U/L (6-35); Albumin Level 4.8 g/dL (3.5-5.1); Alkaline Phosphatase 54 U/L (38-126); Anion Gap 14 mmol/L (4-12); Aspartate Amino Transferase 21 U/L (14-36); Bilirubin,Total 0.5 mg/dL (0.2-1.3); Blood Urea Nitrogen 12 mg/dL (7-17); Calcium 9.6 mg/dL (8.4-10.2); Carbon Dioxide 21 mmol/L (22-30); Chloride 102 mmol/L (98-107); Estimated CRCL calculation 116 ml/min; Estimated Glomerular Filt Rate > 60; Glucose 99 mg/dL (65-110); Sodium 137 mmol/L (137-145)
== END 2024-12-07 17:57 | disposition home or self-care (01) ==
PROVIDERS: Emergency Provider Physician Assistant
DX: O20.8 Other hemorrhage in early pregnancy (principal); Z3A.01 Less than 8 weeks gestation of pregnancy
CPT/HCPCS: 36415; 76801; 80053; 84702; 85025; 85461; 85610; 85730; 86850; 86900; 86901; 99284

== ENCOUNTER 2024-12-10 11:59 | Emergency (ER) | payer SELFPAY ==
--- NOTE | ~2024-12-10 | US_ITS ---
EXAMINATION: US OB <= 14 weeks fetus DATE: 12/10/2024 12:41 CDT INDICATION: COMPARISON: 07/02/2024 TECHNIQUE: Real-time transabdominal obstetric ultrasound. FINDINGS: 1 para 0 Estimated date of delivery by last menstrual period is 07/06/2025 The uterus measures 9.7 x 5.8 x 7.2 cm. A gestational sac is identified within the uterus. A pole is identified, with a crown-rump length that measures 1.8 cm, corresponding to an approx imate gestational age of 8 weeks and 2 days. cardiac activity is identified at a rate of 175 bpm. The right ovary measures 2.8 x 1.1 x 2.8 cm. The left ovary measures 3.8 x 1.2 x 3.3 cm. Estimated date of delivery by ultrasound is 07/20/2025 IMPRESSION: Single intrauterine gestation with an approximate gestational age of 8 weeks and 2 days, with c ardiac activity identified. Reviewed, dictated and finalized at location A. IMPRESSION: Single intrauterine gestation with an approximate gestational age of 8 weeks an d 2 days, with cardiac activity identified.
[2024-12-10 12:05] VITALS: BP 107/52; PULSE 71; RESP 20; TEMP 36.5; O2SAT 100
[2024-12-10 12:48] LABS: Basophils Percent Auto 0.2 % (0.2-1.2); Eosinophils Absolute Auto 0.1 K/mm3 (0-0.3); Eosinophils Percent Auto 1.7 % (0-4.4); Hematocrit 33.4 % (37.0-47.0); Hemoglobin 11.4 g/dL (12.0-15.0); Immature Granulocyte Absolute 0.03 K/mm3 (0.00-0.031); Immature Granulocyte Percent A 0.6 % (0-0.5); Lymphocytes Absolute Auto 0.96 K/mm3 (0.9-3.2); Lymphocytes Percent Auto 17.7 % (18.3-44.2); Mean Corpuscular HGB Conc 34.1 g/dl (32-36); Mean Corpuscular Hemoglobin 31.4 pg (26-34); Mean Platelet Volume 9.2 fl (7.4-10.4); Monocytes Absolute Auto 0.3 K/mm3 (0.1-0.6); Monocytes Percent Auto 6.1 % (2.6-8.5); Neutrophils Percent Auto 73.7 % (45.5-73.1); Platelet Count Result 271 k/mm3 (150-375); Red Blood Count 3.63 M/mm3 (4.2-5.4); White Blood Count 5.4 K/mm3 (4.5-10.0)
--- NOTE | 2024-12-10 12:51 | ED_ITS ---
HPI - General Chief complaint: Vaginal Bleeding Stated complaint: vaginal bleeding, 8 weeks preg Time Seen by Provider: 12/10/24 12:02 History of Present Illness HPI Narrative: 24-year-old otherwise healthy female primarily Qatari speaking. She presents emergency department for evaluation of vaginal bleeding while . She was here several days ago and diagnosed with ongoing with some vaginal bleeding and encouraged to follow-up with OBGYN on outpatient basis. She has an appointment scheduled for the but states that she was still bleeding so she came back to the emergency room today. Denies any clot passage or heavy menstrual bleeding, she states that she when she wipes she notices blood on the tissue paper. Denies any diarrheal illness, no tissue passage, syncope, nausea, vomiting, chest pain, shortness a breath, fever chills. No urinary complaints. No trauma or injury. Related Data Allergies Allergy/AdvReac Type Severity Reaction Status Date / Time No Known Allergies Allergy Verified 12/10/24 12:13 Review of Systems 2 Review of Systems: As reviewed above in HPI Exam 2 Narrative: GENERAL: [Well-appearing, well-nourished, and in no acute distress.] HEAD: [Normocephalic, atraumatic.] EYES: [PERRLA and EOMI.] ENT: Nares clear, no rhinorrhea or epistaxis. Mucous membranes moist. NECK: Supple. CHEST: [Clear to auscultation. No respiratory distress.] HEART: [Regular rate and rhythm]. No murmur heard. [Normal peripheral pulses.] ABDOMEN: [Soft, nondistended], [nontender], [No rigidity or guarding] EXTREMITIES: Normal range of motion. [No edema.] SKIN: Warm, dry, no rash. NEURO: [No focal deficits]. Alert and oriented [x3.] PSYCH: [Normal mood and affect.] Course Vital Signs Vital signs: Vital Signs Temperature 36.5 C 12/10/24 12:05 Pulse Rate 71 12/10/24 12:05 Respiratory Rate 20 12/10/24 12:05 Blood Pressure 107/52 L 12/10/24 12:05 Pulse Oximetry 100 12/10/24 12:05 Temperature 36.5 C 12/10/24 12:05 Pulse Rate 71 12/10/24 12:05 Respiratory Rate 20 12/10/24 12:05 Blood Pressure 107/52 L 12/10/24 12:05 Pulse Oximetry 100 12/10/24 12:05 MDM - OB/Uterine Contractions MDM Narrative Medical decision making narrative: 24-year-old female presenting for vaginal bleeding in . She is approximately 6 weeks by last menstrual. Ultrasonography dates. She was here on the for similar complaints. She states the vaginal bleeding has decreased and she notices when she wipes going to the bathroom but denies any large hemorrhage, clot passage, tissue passage. No fever, chills. She has a soft nontender nondistended abdomen. Differential includes vaginal bleeding in , ongoing miscarriage, normal progression of , low suspicion for heterotopic given her recent ultrasound. Blood work was obtained make sure that she is not anemic acutely, repeat ultrasound obtained and she was placed on vehicle monitor technician. Vital signs reassuring. Workup reveals no leukocytosis, hemoglobin of 11.4 which is slightly decreased from prior but not significant. Normal platelet count. Normal coagulation studies. Normal electrolytes, normal renal and hepatic function panel. Normal glucose. Elevated beta quant consistent with . Repeat ultrasound shows single live IUP approximately 8 weeks 2 days with good cardiac activity, no hemorrhage identified. Patient is hemodynamically stable, has a reassuring exam and reassuring ultrasound. She will follow-up with OBGYN on outpatient basis and has an appointment on the . She was given return precautions and safe for discharge at this time. Medical Records Attestation: I reviewed the patient's medical records. Lab Data Attestation: I reviewed the patient's lab results. 12/10/24 12:43 12/10/24 12:43 Labs: Lab Results 12/10/24 Range/Units 12:43 WBC 5.4 (4.5-10.0) K/mm3 RBC 3.63 L (4.2-5.4) M/mm3 Hgb 11.4 L (12.0-15.0) g/dL Hct 33.4 L (37.0-47.0) % MCV 92.0 (80-100) fl MCH 31.4 (26-34) pg MCHC 34.1 (32-36) g/dl RDW 12.0 (11.5-14.5) % Plt Count 271 (150-375) k/mm3 MPV 9.2 (7.4-10.4) fl Immature Gran % (Auto) 0.6 H (0-0.5) % Neut % (Auto) 73.7 H (45.5-73.1) % Lymph % (Auto) 17.7 L (18.3-44.2) % [place] % (Auto) 6.1 (2.6-8.5) % Eos % (Auto) 1.7 (0-4.4) % Baso % (Auto) 0.2 (0.2-1.2) % Lymph # (Auto) 0.96 (0.9-3.2) K/mm3 [place] # (Auto) 0.3 (0.1-0.6) K/mm3 Eos # (Auto) 0.1 (0-0.3) K/mm3 Baso # (Auto) 0.0 (0.0-0.1) K/mm3 Abs Immat Gran (auto) 0.03 (0.00-0.031) K/mm3 Absolute Neuts (auto) 4.0 (1.3-6.7) K/mm3 Absolute Nucleated RBC 0.000 (0.0-0.012) K/mm3 Nucleated RBC % 0.0 (0.0-0.2) % PT 14.5 (11.1-14.7) Seconds INR 1.1 APTT 28.1 (22.3-36.8) Seconds Sodium 136 L (137-145) mmol/L Potassium 3.5 (3.4-5.0) mmol/L Chloride 104 (98-107) mmol/L Carbon Dioxide 21 L (22-30) mmol/L Anion Gap 11 (4-12) mmol/L BUN 7 D (7-17) mg/dL Creatinine 0.47 L (0.7-1.0) mg/dL Estim Creat Clear Calc 123 ml/min Estimated GFR > 60 (59 - ) Glucose 117 H (65-110) mg/dL Calcium 9.1 (8.4-10.2) mg/dL Total Bilirubin 0.8 (0.2-1.3) mg/dL AST 21 (14-36) U/L ALT 17 (6-35) U/L Alkaline Phosphatase 50 (38-126) U/L Total Protein 7.0 (6.3-8.2) g/dL Albumin 4.4 (3.5-5.1) g/dL Beta HCG, Quant > 88614.00 mIU/ML Imaging Data Attestation: I personally reviewed and interpreted this imaging study as follows: My impression: Impressions Ultrasound 12/10/24 12:41 IMPRESSION: Single intrauterine gestation with an approximate gestational age of 8 weeks and 2 days, with cardiac activity identified. Discharge Plan Discharge Clinical Impression: Vaginal bleeding affecting early Patient Disposition: Home, Self-Care Condition: Stable Instructions: Antibiotic Form, Non-Threatening First Trimester Vaginal Bleed (ED) Additional Instructions: Your ultrasound shows a growing at 8 weeks 2 days, no concerning findings on your ultrasound or laboratory studies. You are not losing significant amounts of blood and you are hemodynamically stable and safe to go home and follow-up with an OBGYN. If you start passing large blood clots, tissue, start passing out or feeling lightheaded or have any other concerns you can return to the emergency department, otherwise call your OBGYN for evaluation. Patient Language: Qatari Follow-up/Referrals: UNKNOWN,DOCTOR [Primary Care Provider] - Time of Disposition: 13:39
[2024-12-10 12:58] LABS: Alanine Aminotransferase 17 U/L (6-35); Albumin Level 4.4 g/dL (3.5-5.1); Alkaline Phosphatase 50 U/L (38-126); Anion Gap 11 mmol/L (4-12); Aspartate Amino Transferase 21 U/L (14-36); Bilirubin,Total 0.8 mg/dL (0.2-1.3); Blood Urea Nitrogen 7 mg/dL (7-17); Calcium 9.1 mg/dL (8.4-10.2); Carbon Dioxide 21 mmol/L (22-30); Chloride 104 mmol/L (98-107); Estimated CRCL calculation 123 ml/min; Estimated Glomerular Filt Rate > 60; Glucose 117 mg/dL (65-110); Potassium 3.5 mmol/L (3.4-5.0); Sodium 136 mmol/L (137-145)
[2024-12-10 13:00] LABS: INR 1.1; Prothrombin Time 14.5 Seconds (11.1-14.7)
[2024-12-10 13:01] LABS: Partial Thromboplastin Time 28.1 Seconds (22.3-36.8)
--- OUTSIDE RECORDS SUMMARY | 2024-12-10 13:36 | XMS_ITS | Referral Summary ---
Author Organization [facility] Address [address] [place] [address] Care Team Providers Care Polls Or Surveys Interviewer Name Role Phone No, Physician Primary Care Provider [phone] Encounters Date Type Department Care Team Description 11/26/2024 12:33 PM MONEY ROOM SUPERVISOR - 11/26/2024 2:19 PM [facility] Emergency Department [address] [place] [id number] Abdominal pain during in first trimester (Primary Dx); Threatened miscarriage in early Discharge Disposition: Discharge to home or self care 11/25/2024 - 11/26/2024 1:04 AM [facility] Emergency Department [address] [place] [id number] Discharge Disposition: ED Dismiss - Never Arrived from Last 3 Months Allergies No known active allergies Medications vit [id number] real 27mg iron- 800 mcg-250 mg capsule [...] on file Legal Sex Female 7:27 PM MONEY ROOM SUPERVISOR Gender Identity Female 11/26/2024 11:52 AM MONEY ROOM SUPERVISOR Sexual Orientation Not on file Last Filed Vital Signs Vital Sign Reading Time Taken Comments Blood Pressure 101/54 11/26/2024 2:00 PM MONEY ROOM SUPERVISOR Pulse 58 11/26/2024 2:00 PM MONEY ROOM SUPERVISOR Temperature 36.7 C (98 F) 11/26/2024 10:56 AM MONEY ROOM SUPERVISOR Respiratory Rate 16 11/26/2024 2:00 PM MONEY ROOM SUPERVISOR Oxygen Saturation 100% 11/26/2024 2:00 PM MONEY ROOM SUPERVISOR Inhaled Oxygen Concentration - - Weight 52.7 kg (116 lb 2.9 oz) 11/26/2024 10:56 AM MONEY ROOM SUPERVISOR Height 152.4 cm (5') 11/26/2024 10:56 AM MONEY ROOM SUPERVISOR Body Mass Index 22.69 11/26/2024 10:56 AM MONEY ROOM SUPERVISOR Plan of Treatment Not on file Procedures Procedure Name Priority Date/Time Associated Diagnosis Comments US OB TRANSVAGINAL ED 11/26/2024 11 :56 AM MONEY ROOM SUPERVISOR URINALYSIS, MICROSCOPIC ONLY STAT 11/26/2024 11:13 AM MONEY ROOM SUPERVISOR URINALYSIS AND REFLEX TO MICROSCOPIC AND CULTURE STAT 11/26/2024 11:13 AM MONEY ROOM SUPERVISOR POCT HCG, URINE Routine 11/26/2024 11:09 AM MONEY ROOM SUPERVISOR EGFR STAT 11/26/2024 11:08 AM MONEY ROOM SUPERVISOR DIFFERENTIAL AUTO STAT 11/26/2024 11: 08 AM MONEY ROOM SUPERVISOR ANTIBODY SCREEN STAT 11/26/2024 11:08 AM MONEY ROOM SUPERVISOR ABO/RH STAT 11/26/2024 11:08 AM MONEY ROOM SUPERVISOR TYPE AND SCREEN STAT 11/26/2024 11:08 AM MONEY ROOM SUPERVISOR HCG, BLOOD, QUANTITATIVE STAT 11/26/2024 11:08 AM MONEY ROOM SUPERVISOR LIPASE STAT 11/26/2024 11:08 AM MONEY ROOM SUPERVISOR COMPREHENSIVE METABOLIC PANEL STAT 11/26/2024 11:08 AM MONEY ROOM SUPERVISOR CBC WITH AUTO DIFFERENTIAL STAT 11/26/2024 11:08 AM MONEY ROOM SUPERVISOR from Last 3 Months Results * US Ob Transvaginal (11/26/2024 11:56 AM MONEY ROOM SUPERVISOR) Anatomical Region Laterality Modality Abdomen N/A Ultrasound 11/26/2024 12:2 3 PM MONEY ROOM SUPERVISOR Narrative 11/26/2024 12:26 PM MONEY ROOM SUPERVISOR EXAM DESCRIPTION: US OB TRANSVAGINAL REASON FOR STUDY: rule out ectopic Abdominal pain for couple of days. Beta-hCG: Not available TECHNIQUE: Transvaginal images acquired of the pelvis. COMPARISON: None FINDINGS Intrauterine gestational sac: Present Yolk sac: Present and measures 0.3 cm. Subchorionic bleed: No Emmons-rump length: 0.53 cm heart rate: 98 bpm [...] Carlos Dueñas D.O. PS: PS Report ID: [id number] Reading Location: [id number] Procedure Note Carlos Dueñas DO - 11/26/2024 EXAM DESCRIPTION: US OB TRANSVAGINAL REASON FOR STUDY: rule out ectopic Abdominal pain for couple of days. Beta-hCG: Not available TECHNIQUE: Transvaginal images acquired of the pelvis. COMPARISON: None FINDINGS Intrauterine gestational sac: Present Yolk sac: Present and measures 0.3 cm. Subchorionic bleed: No Emmons-rump length: 0.53 cm heart rate: 98 bpm [...] Carlos Dueñas D.O. PS: PS Report ID: [id number] Reading Location: [id number] us Dia BALTAZAR IMG OB US PROCEDURES Final Resu lt * (ABNORMAL) Urinalysis reflex to microscopic and culture Urine (11/26/2024 11:13 AM MONEY ROOM SUPERVISOR) Color, ur Yellow Yellow Comment:Testing performed by : [address] [address] Clarity, ur Cloudy(A) Clear RAJI Comment:Testing performed by : [address] [address] Specific gravity, ur 1.024 1.003 - 1.030 RAJI Comment:Testing performed by : [address], [place]., [address] pH, urine 6.5 RAJI Comment: Interpretive Data U rine pH is affected by diet, medications, systemic acid-base disturbances, and renal tubular function. pH may affect urinary stone formation. For example, urine pH below 6.0 may help reduce the tendency for calcium phosphate stones and pH greater than 6.0 may reduce the tendency for uric acid stone formation. Source: [facility] [employer] Current Interpretive Data was last revised on 2017 Testing performed by: [address] [address] Protein, ur ql Negative Negative RAJI Comment:Testing performed by : [address] [address] Glucose, ur ql Negative Negative RAJI Comment:Testing performed by : [address] [address] Ketones, ur Negative Negative RAJI Comment:Testing performed by : [address] [address] Bilirubin, ur Negative Negative RAJI Comment:Testing performed by : [address] [address] Blood, ur 1+(A) Negative RAJI Comment:Testing performed by : [address] [address] Urobilinogen, ur <2.0 <2.0 mg/dL RAJI Comment:Testing performed by : [address] [address] Nitrite, ur Negative Negative RAJI Comment:Testing performed by : [address] [address] Leukocyte esterase, ur 2+(A) Negative RAJI Comment:Testing performed by : [address] [address] UA reflex comment Reflex to microscopic UA will be performed. RAJI Comment:Testing performed by : [address] [address] Urine 11/26/2024 11:1 3 AM MONEY ROOM SUPERVISOR 11/26/2024 11:39 AM MONEY ROOM SUPERVISOR Coy Brothers MD LAB MICROBIOLOGY - GENERAL ORDERABLES Final Result CARLANANCY [address] [facility] Department [place] [address] * (ABNORMAL) Urinalysis, microscopic only (11/26/2024 11:13 AM MONEY ROOM SUPERVISOR) WBC, ur 6-10(A) 0 - 5 /HPF Comment:Testing performed by : [facility], [address] [place] [address]., [address] RBC, ur 6-10(A) 0 - 2 /HPF RAJI Comment:Testing performed by : [address] [address] Epithelial cells, squamous, ur >50(A) 0 - 5 /HPF RAJI Comment:Testing performed by : [address] [address] Bacteria, ur Trace(A) RAJI Comment:Testing performed by : [address] [address] Yeast, ur 1+(A) RAJI Comment:Testing performed by : [address] [address] Mucous, ur Present(A) RAJI Comment:Testing performed by : [address] [address] Culture Reflex Comment Reflex conditions for urine culture (WBC >10) not met. RAJI Comment:Testing performed by : [address] [address] Urine 11/26/2024 11:1 3 AM MONEY ROOM SUPERVISOR 11/26/2024 11:39 AM MONEY ROOM SUPERVISOR Coy Brothers MD LAB URINE ORDERABLE S Final Result RAJI [address] [facility] Department [place] [address] * (ABNORMAL) POCT hCG, urine (11/26/2024 11:09 AM MONEY ROOM SUPERVISOR) HCG, ur, POC Positive(A) Negative Lot Number [id number] QC Backgroud Clear Acceptable QC Control Line Acceptable Urine 11/26/2024 11:0 9 AM MONEY ROOM SUPERVISOR Coy Brothers MD POINT OF CARE TEST ORDERABLES Final Result * eGFR (11/26/2024 11:08 AM MONEY ROOM SUPERVISOR) Pathologist [facility] [place] eGFR >90 >=60 mL/min/1. 73 m2 Comment: [...] was last reviewed 2021. Testing performed by: [facility], [address] [place] [address]., [address] Blood 11/26/2024 11:0 8 AM MONEY ROOM SUPERVISOR 11/26/2024 11:15 AM MONEY ROOM SUPERVISOR Coy Brothers MD LAB BLOOD ORDERABLE S Final Result RAJI [address] [facility] Department [place] [address] * Differential, auto (11/26/2024 11:08 AM MONEY ROOM SUPERVISOR) Neutrophil abs 5.5 1.5 - 6.5 K/cumm Comment:Testing performed by : [address] [address] Imm gran abs 0.0 0.0 - 0.1 K/cumm RAJI Comment:Testing performed by : [address] [address] Lymphocyte abs 1.1 0.8 - 3.3 K/cumm RAJI Comment:Testing performed by : [address] [address] Monocyte abs 0.4 0.2 - 0.8 K/cumm RAJI Comment:Testing performed by : [address] [address] Eosinophil abs 0.1 0.0 - 0.5 K/cumm RAJI Comment:Testing performed by : [address] [address] Basophil abs 0.0 0.0 - 0.1 K/cumm RAJI Comment:Testing performed by : [address] [address] Neutrophil pct 76.4 % RAJI Comment: Interpretive Data Percent cell count reference ranges are not reported, since discordance with absolute values may lead to misinterpretation of CBC data. Current Interpretive Data was last revised on 2018. Testing performed by: [address] [address] Imm gran pct 0.6 % RAJI Comment: Interpretive Data Percent cell count reference ranges are not reported, since discordance with absolute values may lead to misinterpretation of CBC data. Current Interpretive Data was last revised on 2018. Testing performed by: [address] [address] Lymphocyte pct 15.6 % ARJI Comment: Interpretive Data Percent cell count reference ranges are not reported, since discordance with absolute values may lead to misinterpretation of CBC data. Current Interpretive Data was last revised on 2018. Testing performed by: [address] [address] Monocyte pct 5.9 % RAJI Comment: Interpretive Data Percent cell count reference ranges are not reported, since discordance with absolute values may lead to misinterpretation of CBC data. Current Interpretive Data was last revised on 2018. Testing performed by: [address] [address] Eosinophil pct 1.4 % RAJI Comment: Interpretive Data Percent cell count reference ranges are not reported, since discordance with absolute values may lead to misinterpretation of CBC data. Current Interpretive Data was last revised on 2018. Testing performed by: [address] [address] Basophil pct 0.1 % RAJI Comment: Interpretive Data Percent cell count reference ranges are not reported, since discordance with absolute values may lead to misinterpretation of CBC data. Current Interpretive Data was last revised on 2018. Testing performed by: [address] [address] Blood 11/26/2024 11:0 8 AM MONEY ROOM SUPERVISOR 11/26/2024 11:16 AM MONEY ROOM SUPERVISOR us Coy Brothers MD LAB BLOOD ORDERABLE S Final Result [facility] [address] [facility] Department [place] [address] * CBC with auto differential (11/26/2024 11:08 AM MONEY ROOM SUPERVISOR) WBC 7.2 3.8 - 9.9 K/cumm Comment:Testing performed by : [address] [address] Hgb 12.2 11.9 - 15.5 g/dL RAJI TANNER Comment:Testing performed by : [address] [address] Hct 36.4 35.6 - 45.5 % RAJI Comment:Testing performed by : [address] [address] Plt 314 150 - 400 K/cumm RAJI TANNER Comment:Testing performed by : [address] [address] MPV 9.1 9.1 - 12.3 fL RAJI TANNER Comment:Testing performed by : [address] [address] RBC 3.92 3.90 - 5.20 M/cumm RAJI TANNER Comment:Testing performed by : [address] [address] MCV 92.9 81.3 - 96.4 fL RAJI Comment:Testing performed by : [address] [address] MCH 31.1 27.1 - 33.3 pg RAJI TANNER Comment:Testing performed by : [address], [address] MCHC 33.5 32.3 - 35.7 g/dL RAJI Comment:Testing performed by : [address], [address] RDW CV 12.3 11.1 - 14.9 % RAJI Comment:Testing performed by : [address] [address] RDW SD 42.1 35.7 - 48.1 fL RAJI Comment:Testing performed by : [address] [address] NRBC abs 0.00 0.00 - 0.01 K/cumm RAJI Comment:Testing performed by : [address] [address] Blood Venous blood specimen / Unknown 11/26/2024 11:08 AM MONEY ROOM SUPERVISOR 11/26/2024 11:16 AM MONEY ROOM SUPERVISOR us Coy Brothers MD LAB BLOOD ORDERABLE S Final Result RAJI [address] [facility] Department [place] [address] * ABO/Rh (11/26/2024 11:08 AM MONEY ROOM SUPERVISOR) Pathologist [facility] [place] ABO/Rh O Positive Comment:Testing performed by : [address] [address] Blood 11/26/2024 11:0 8 AM MONEY ROOM SUPERVISOR 11/26/2024 11:15 AM MONEY ROOM SUPERVISOR Narrative [facility] - 11/26/2024 11:46 AM MONEY ROOM SUPERVISOR Has the patient had Daratumumab or Isatuximab in the past 6 months?->Unknown Coy Brothers MD LAB BLOOD BANK TEST ORDERABLES Final Result Performing Organization Address [facility] de Phone Number [address] [employer] [place] [address] * Antibody screen (11/26/2024 11:08 AM MONEY ROOM SUPERVISOR) [facility] Lali, indirect, Gel Interpretation Negative ABSC Comment:Testing performed by : [facility], [address] [place] [address]., [address] Blood 11/26/2024 11:0 8 AM MONEY ROOM SUPERVISOR 11/26/2024 11:15 AM MONEY ROOM SUPERVISOR Narrative [facility] - 11/26/2024 11:54 AM MONEY ROOM SUPERVISOR Has the patient had Daratumumab or Isatuximab in the past 6 months?->Unknown Coy Brothers MD LAB BLOOD BANK TEST ORDERABLES Final Result Performing Organization Address [facility] de Phone Number [address] [employer] [place] [address] * (ABNORMAL) hCG, blood, quantitative (11/26/2024 11:08 AM MONEY ROOM SUPERVISOR) [facility] hCG, quant 25,550.0( H) 0.0 - 5.0 IUnits/L Comment: Interpretive Data Male: < 5 IU/L Non- premenopausal Female: <5 IU/L The Rachid hCG Beta Quant assay procedure was used. Results from different manufacturers or methods may not be comparable. Serial testing should be performed using the same method. Interpretive Data was last revised on 2023 Testing performed by: [address] [address] Blood 11/26/2024 11:0 8 AM MONEY ROOM SUPERVISOR 11/26/2024 11:15 AM MONEY ROOM SUPERVISOR Coy Brothers MD LAB BLOOD ORDERABLE S Final Result Performing Organization Address [facility] Co de Phone Number [address] [employer] [place] [address] * Lipase (11/26/2024 11:08 AM MONEY ROOM SUPERVISOR) [facility] Lipase 26 10 - 99 Units/L Comment:Testing performed by : [address] [address] Blood Venous blood specimen / Unknown 11/26/2024 11:08 AM MONEY ROOM SUPERVISOR 11/26/2024 11:15 AM MONEY ROOM SUPERVISOR Coy Brothers MD LAB BLOOD ORDERABLE S Final Result Performing Organization Address [facility] de Phone Number [address] [address] * (ABNORMAL) Comprehensive metabolic panel (11/26/2024 11:08 AM MONEY ROOM SUPERVISOR) [facility] Sodium 137 135 - 145 mmol/L Comment:Testing performed by : [address] [address] Potassium, pl 3.7 3.3 - 4.9 mmol/L RAJI Comment:Testing performed by : [address] [address] Chloride 103 97 - 110 mmol/L RAJI Comment:Testing performed by : [address] [address] CO2 23 22 - 32 mmol/L RAJI Comment:Testing performed by : [address] [address] Anion gap 11 2 - 15 mmol/L RAJI Comment:Testing performed by : [address] [address] BUN 9 6 - 25 mg/dL RAJI Comment:Testing performed by : [address] [address] Creatinine 0.54(L) 0.60 - 1.10 mg/dL RAJI Comment:Testing performed by : [address] [address] Glucose 88 70 - 199 mg/dL RAJI [...] was last revised 2022. Testing performed by: [address] [address] Calcium 9.9 8.5 - 10.3 mg/dL RAJI Comment:Testing performed by : [address] [address] Bilirubin, total 0.9 0.1 - 1.2 mg/dL RAJI Comment:Testing performed by : [address] [address] Protein, pl 7.5 6.5 - 8.5 g/dL RAJI Comment:Testing performed by : [address] [address] Albumin 4.6 3.5 - 5.0 g/dL RAJI Comment:Testing performed by : [address] [address] Alk phos 55 40 - 130 Units/L RAJI Comment:Testing performed by : [address] [address] ALT 15 7 - 45 Units/L RAJI Comment:Testing performed by : [address], [place]., [address] AST 18 10 - 45 Units/L RAJI TANNER Comment:Testing performed by : [facility], [address] [place] [address]., [address] Blood 11/26/2024 11:0 8 AM MONEY ROOM SUPERVISOR 11/26/2024 11:15 AM MONEY ROOM SUPERVISOR us Coy Brothers MD LAB BLOOD ORDERABLE S Final Result RAJI TANNER [address] [facility] Department of Laboratories [place], [place] [id number] from Last 3 Months Care Teams Polls Or Surveys Interviewer Relationship Specialty Start Date End Date No, Physician PCP - General 11/26/24
--- OUTSIDE RECORDS SUMMARY | 2024-12-10 13:36 | XMS_ITS | Clinical Summary ---
Author Organization [facility] Address [address] [place] [address] Care Team Providers Care Ammonia Worker Name Role Phone No, Physician Primary Care Provider [phone] Allergies No known active allergies Medications vit 94-ebpf-xbeek-d real 27mg iron- 800 mcg-250 mg capsule Take 1 tablet/capsu le by mouth daily 30 capsule 11/26/2024 Active doxylamine-pyri doxine, vit B6, (DICLEGIS) 10-10 mg tablet Take 1 tablet by mouth nightly as needed for nausea 30 tablet 11/26/2024 Active Encounters Date Type Department Care Team Description 11/26/2024 12:33 PM MOTORCYCLE BUILDER - 11/26/2024 2:19 PM [facility] Emergency Department [address] [place] [address] Abdominal pain during in first trimester (Primary Dx); Threatened miscarriage in early Discharge Disposition: Discharge to home or self care 11/25/2024 - 11/26/2024 1:04 AM [facility] Emergency Department [address] [place] [address] Discharge Disposition: ED Dismiss - Never Arrived [...] on file Legal Sex Female 7:27 PM MOTORCYCLE BUILDER Gender Identity Female 11/26/2024 11:52 AM MOTORCYCLE BUILDER Sexual Orientation Not on file Obstetrics History Para Term AB IAB SAB Ectopic Multiple Livin g Live Births 1 Date Outcome GA Total Labor Labor/2nd/3rd Weight Sex Type Anes PTL Stephanie A1 A5 Name Clin Current Last Filed Vital Signs Vital Sign Reading Time Taken Comments Blood Pressure 101/54 11/26/2024 2:00 PM [employer]CYCLE BU[employer]DER Pulse 58 11/26/2024 2:00 PM [employer]ORCYCLE BUILDER Temperature 36.7 C (98 F) 11/26/2024 10:56 AM MOTORCYCLE BUILDER Respiratory Rate 16 11/26/2024 2:00 PM MOTORCYCLE BUILDER Oxygen Saturation 100% 11/26/2024 2:00 PM MOTORCYCLE BUILDER Inhaled Oxygen Concentration - - Weight 52.7 kg (116 lb 2.9 oz) 11/26/2024 10:56 AM MOTORCYCLE BUILDER Height 152.4 cm (5') 11/26/2024 10:56 AM MOTORCYCLE BUILDER Body Mass Index 22.69 11/26/2024 10:56 AM MOTORCYCLE BUILDER Plan of Treatment Health Maintenance Due Date [...] OB TRANSVAGINAL ED 11/26/2024 11 :56 AM MOTORCYCLE BUILDER URINALYSIS, MICROSCOPIC ONLY STAT 11/26/2024 11:13 AM MOTORCYCLE BUILDER URINALYSIS AND REFLEX TO MICROSCOPIC AND CULTURE STAT 11/26/2024 11:13 AM MOTORCYCLE BUILDER POCT HCG, URINE Routine 11/26/2024 11:09 AM MOTORCYCLE BUILDER EGFR STAT 11/26/2024 11:08 AM MOTORCYCLE BUILDER DIFFERENTIAL AUTO STAT 11/26/2024 11: 08 AM MOTORCYCLE BUILDER ANTIBODY SCREEN STAT 11/26/2024 11:08 AM MOTORCYCLE BUILDER ABO/RH STAT 11/26/2024 11:08 AM MOTORCYCLE BUILDER TYPE AND SCREEN STAT 11/26/2024 11:08 AM MOTORCYCLE BUILDER HCG, BLOOD, QUANTITATIVE STAT 11/26/2024 11:08 AM MOTORCYCLE BUILDER LIPASE STAT 11/26/2024 11:08 AM MOTORCYCLE BUILDER COMPREHENSIVE METABOLIC PANEL STAT 11/26/2024 11:08 AM MOTORCYCLE BUILDER CBC WITH AUTO DIFFERENTIAL STAT 11/26/2024 11:08 AM MOTORCYCLE BUILDER from Last 3 Months Results * US Ob Transvaginal (11/26/2024 11:56 AM MOTORCYCLE BUILDER) Anatomical Region Laterality Modality Abdomen N/A Ultrasound 11/26/2024 12:2 3 PM MOTORCYCLE BUILDER Narrative 11/26/2024 12:26 PM MOTORCYCLE BUILDER EXAM DESCRIPTION: US OB TRANSVAGINAL REASON FOR STUDY: rule out ectopic Abdominal pain for couple of days. Beta-hCG: Not available TECHNIQUE: Transvaginal images acquired of the pelvis. COMPARISON: None FINDINGS Intrauterine gestational sac: Present Yolk sac: Present and measures 0.3 cm. Subchorionic bleed: No [place]-rump length: 0.53 cm heart rate: 98 bpm [...] Carlos Dueñas D.O. PS: PS Report ID: [id number] Reading Location: [id number] Procedure Note Carlos Dueñas, DO - 11/26/2024 EXAM DESCRIPTION: US OB TRANSVAGINAL REASON FOR STUDY: rule out ectopic Abdominal pain for couple of days. Beta-hCG: Not available TECHNIQUE: Transvaginal images acquired of the pelvis. COMPARISON: None FINDINGS Intrauterine gestational sac: Present Yolk sac: Present and measures 0.3 cm. Subchorionic bleed: No [place]-rump length: 0.53 cm heart rate: 98 bpm [...] Carlos Dueñas D.O. PS: PS Report ID: [id number] Reading Location: [place] [address] us Dia BALTAZAR IMG OB US PROCEDURES Final Resu lt * (ABNORMAL) Urinalysis reflex to microscopic and culture Urine (11/26/2024 11:13 AM MOTORCYCLE BUILDER) Color, ur Yellow Yellow Comment:Testing performed by : [address] [address] Clarity, ur Cloudy(A) Clear RAJI Comment:Testing performed by : [address] [address] Specific gravity, ur 1.024 1.003 - 1.030 RAJI Comment:Testing performed by : [address] [address] pH, urine 6.5 RAJI Comment: Interpretive Data U rine pH is affected by diet, medications, systemic acid-base disturbances, and renal tubular function. pH may affect urinary stone formation. For example, urine pH below 6.0 may help reduce the tendency for calcium phosphate stones and pH greater than 6.0 may reduce the tendency for uric acid stone formation. Source: [employer] Current Interpretive Data was last revised on 2017 Testing performed by: [address] [address] Protein, ur ql Negative Negative RAJI Comment:Testing performed by : [address] [address] Glucose, ur ql Negative Negative RAJI Comment:Testing performed by : [address] [address] Ketones, ur Negative Negative RAJI Comment:Testing performed by : [address] [address] Bilirubin, ur Negative Negative RAJI Comment:Testing performed by : [address], [place]., [address] Blood, ur 1+(A) Negative RAJI TANNER Comment:Testing performed by : [facility], [address] [place] [address], [place]., [address] Urobilinogen, ur <2.0 <2.0 mg/dL RAJI Comment:Testing performed by : [address], [place]., [address] Nitrite, ur Negative Negative RAJI Comment:Testing performed by : [address], [place]., [address] Leukocyte esterase, ur 2+(A) Negative RAJI Comment:Testing performed by : [address], [place]., [address] UA reflex comment Reflex to microscopic UA will be performed. RAJI Comment:Testing performed by : [address], [place]., [address] Urine 11/26/2024 11:1 3 AM MOTORCYCLE BUILDER 11/26/2024 11:39 AM MOTORCYCLE BUILDER us Coy Brothers MD LAB MICROBIOLOGY - GENERAL ORDERABLES Final Result RAJI [address] [facility] Department of Laboratories [place], [place] [id number] * (ABNORMAL) Urinalysis, microscopic only (11/26/2024 11:13 AM MOTORCYCLE BUILDER) WBC, ur 6-10(A) 0 - 5 /HPF Comment:Testing performed by : [address], [place]., [address] RBC, ur 6-10(A) 0 - 2 /HPF RAJI TANNER Comment:Testing performed by : [address] [address] Epithelial cells, squamous, ur >50(A) 0 - 5 /HPF RAJI Comment:Testing performed by : [address], [place]., [address] Bacteria, ur Trace(A) RAJI TANNER Comment:Testing performed by : [facility], [address] [place] [address]., [address] Yeast, ur 1+(A) RAJI Comment:Testing performed by : [address] [address] Mucous, ur Present(A) RAJI Comment:Testing performed by : [address] [address] Culture Reflex Comment Reflex conditions for urine culture (WBC >10) not met. RAJI Comment:Testing performed by : [address], [place]., [address] Urine 11/26/2024 11:1 3 AM MOTORCYCLE BUILDER 11/26/2024 11:39 AM MOTORCYCLE BUILDER Coy Brothers MD LAB URINE ORDERABLE S Final Result RAJI [facility] Department [place] [address] * (ABNORMAL) POCT hCG, urine (11/26/2024 11:09 AM MOTORCYCLE BUILDER) Pathologist [facility] HCG, ur, POC Positive(A) Negative Lot Number [id number] QC Backgroud Clear Acceptable QC Control Line Acceptable Urine 11/26/2024 11:0 9 AM MOTORCYCLE BUILDER Coy Brothers MD POINT OF CARE TEST ORDERABLES Final Result * eGFR (11/26/2024 11:08 AM MOTORCYCLE BUILDER) eGFR >90 >=60 mL/min/1. 73 m2 Comment: [...] was last reviewed 2021. Testing performed by: [address] [address] Blood 11/26/2024 11:0 8 AM MOTORCYCLE BUILDER 11/26/2024 11:15 AM MOTORCYCLE BUILDER us Coy Brothers MD LAB BLOOD ORDERABLE S Final Result RAJI [facility] Department [place] [address] * Differential, auto (11/26/2024 11:08 AM MOTORCYCLE BUILDER) Neutrophil abs 5.5 1.5 - 6.5 K/cumm Comment:Testing performed by : [address] [address] Imm gran abs 0.0 0.0 - 0.1 K/cumm RAJI Comment:Testing performed by : [address] [address] Lymphocyte abs 1.1 0.8 - 3.3 K/cumm RAJI Comment:Testing performed by : [address] [address] Monocyte abs 0.4 0.2 - 0.8 K/cumm RAJI Comment:Testing performed by : [address] [address] Eosinophil abs 0.1 0.0 - 0.5 K/cumm RAJI Comment:Testing performed by : [address] [address] Basophil abs 0.0 0.0 - 0.1 K/cumm RAJI Comment:Testing performed by : [address] [address] Neutrophil pct 76.4 % CERNER Comment: Interpretive Data Percent cell count reference ranges are not reported, since discordance with absolute values may lead to misinterpretation of CBC data. Current Interpretive Data was last revised on 2018. Testing performed by: [address] [address] Imm gran pct 0.6 % [facility] Comment: Interpretive Data Percent cell count reference ranges are not reported, since discordance with absolute values may lead to misinterpretation of CBC data. Current Interpretive Data was last revised on 2018. Testing performed by: [address] [address] Lymphocyte pct 15.6 % [facility] Comment: Interpretive Data Percent cell count reference ranges are not reported, since discordance with absolute values may lead to misinterpretation of CBC data. Current Interpretive Data was last revised on 2018. Testing performed by: [address] [address] Monocyte pct 5.9 % [facility] Comment: Interpretive Data Percent cell count reference ranges are not reported, since discordance with absolute values may lead to misinterpretation of CBC data. Current Interpretive Data was last revised on 2018. Testing performed by: [address] [address] Eosinophil pct 1.4 % CERNER Comment: Interpretive Data Percent cell count reference ranges are not reported, since discordance with absolute values may lead to misinterpretation of CBC data. Current Interpretive Data was last revised on 2018. Testing performed by: [address] [address] Basophil pct 0.1 % [facility] Comment: Interpretive Data Percent cell count reference ranges are not reported, since discordance with absolute values may lead to misinterpretation of CBC data. Current Interpretive Data was last revised on 2018. Testing performed by: [address] [address] Blood 11/26/2024 11:0 8 AM MOTORCYCLE BUILDER 11/26/2024 11:16 AM MOTORCYCLE BUILDER us Coy Brothers MD LAB BLOOD ORDERABLE S Final Result RAJI [address] [facility] Department [place] [address] * CBC with auto differential (11/26/2024 11:08 AM MOTORCYCLE BUILDER) WBC 7.2 3.8 - 9.9 K/cumm Comment:Testing performed by : [address] [address] Hgb 12.2 11.9 - 15.5 g/dL RAJI Comment:Testing performed by : [address] [address] Hct 36.4 35.6 - 45.5 % RAJI Comment:Testing performed by : [address] [address] Plt 314 150 - 400 K/cumm RAJI Comment:Testing performed by : [address] [address] MPV 9.1 9.1 - 12.3 fL RAJI Comment:Testing performed by : [address] [address] RBC 3.92 3.90 - 5.20 M/cumm RAJI Comment:Testing performed by : [address] [address] MCV 92.9 81.3 - 96.4 fL RAJI Comment:Testing performed by : [address] [address] MCH 31.1 27.1 - 33.3 pg RAJI Comment:Testing performed by : [address] [address] MCHC 33.5 32.3 - 35.7 g/dL RAJI Comment:Testing performed by : [address], [address] RDW CV 12.3 11.1 - 14.9 % RAJI Comment:Testing performed by : [address], [address] RDW SD 42.1 35.7 - 48.1 fL RAJI Comment:Testing performed by : [address] [address] NRBC abs 0.00 0.00 - 0.01 K/cumm RAJI Comment:Testing performed by : [address], [address] Blood Venous blood specimen / Unknown 11/26/2024 11:08 AM MOTORCYCLE BUILDER 11/26/2024 11:16 AM MOTORCYCLE BUILDER Coy Brothers MD LAB BLOOD ORDERABLE S Final Result Performing Organization Address [facility] Co de Phone Number CARLA[address] [address] * ABO/Rh (11/26/2024 11:08 AM MOTORCYCLE BUILDER) ABO/Rh O Positive Comment:Testing performed by : [address], [address] Blood 11/26/2024 11:0 8 AM MOTORCYCLE BUILDER 11/26/2024 11:15 AM MOTORCYCLE BUILDER Narrative RAJI - 11/26/2024 11:46 AM MOTORCYCLE BUILDER Has the patient had Daratumumab or Isatuximab in the past 6 months?->Unknown Coy Brothers MD LAB BLOOD BANK TEST ORDERABLES Final Result Performing Organization Address [facility] Co de Phone Number [address] [place] [employer] [place] [address] * Antibody screen (11/26/2024 11:08 AM MOTORCYCLE BUILDER) Lali, indirect, Gel Interpretation Negative ABSC Comment:Testing performed by : [address], [address] Blood 11/26/2024 11:0 8 AM MOTORCYCLE BUILDER 11/26/2024 11:15 AM MOTORCYCLE BUILDER Narrative RAJI - 11/26/2024 11:54 AM MOTORCYCLE BUILDER Has the patient had Daratumumab or Isatuximab in the past 6 months?->Unknown Coy Brothers MD LAB BLOOD BANK TEST ORDERABLES Final Result RAJI [address] [place] [address] * (ABNORMAL) hCG, blood, quantitative (11/26/2024 11:08 AM MOTORCYCLE BUILDER) [facility] hCG, quant 25,550.0( H) 0.0 - 5.0 IUnits/L Comment: Interpretive Data Male: < 5 IU/L Non- premenopausal Female: <5 IU/L The Rachid hCG Beta Quant assay procedure was used. Results from different manufacturers or methods may not be comparable. Serial testing should be performed using the same method. Interpretive Data was last revised on 2023 Testing performed by: [address] [address] Blood 11/26/2024 11:0 8 AM MOTORCYCLE BUILDER 11/26/2024 11:15 AM MOTORCYCLE BUILDER Coy Brothers MD LAB BLOOD ORDERABLE S Final Result Performing Organization Address [facility] Co de Phone Number CARLA[address] [address] * Lipase (11/26/2024 11:08 AM MOTORCYCLE BUILDER) [facility] Lipase 26 10 - 99 Units/L Comment:Testing performed by : [address] [address] Blood Venous blood specimen / Unknown 11/26/2024 11:08 AM MOTORCYCLE BUILDER 11/26/2024 11:15 AM MOTORCYCLE BUILDER Coy Brothers MD LAB BLOOD ORDERABLE S Final Result RAJI [address] [place] [address] * (ABNORMAL) Comprehensive metabolic panel (11/26/2024 11:08 AM MOTORCYCLE BUILDER) Sodium 137 135 - 145 mmol/L Comment:Testing performed by : [address] [address] Potassium, pl 3.7 3.3 - 4.9 mmol/L RAJI Comment:Testing performed by : [address] [address] Chloride 103 97 - 110 mmol/L RAJI Comment:Testing performed by : [address] [address] CO2 23 22 - 32 mmol/L RAJI Comment:Testing performed by : [address] [address] Anion gap 11 2 - 15 mmol/L RAJI Comment:Testing performed by : [address] [address] BUN 9 6 - 25 mg/dL RAJI Comment:Testing performed by : [address], [place]., [address] Creatinine 0.54(L) 0.60 - 1.10 mg/dL [facility] Comment:Testing performed by : [address] [address] Glucose 88 70 - 199 mg/dL [facility] Comment: Interpretive Data Fasting glucose >/= 126 [...] was last revised 2022. Testing performed by: [address] [address] Calcium 9.9 8.5 - 10.3 mg/dL RAJI Comment:Testing performed by : [address] [address] Bilirubin, total 0.9 0.1 - 1.2 mg/dL RAJI Comment:Testing performed by : [address], [address] Protein, pl 7.5 6.5 - 8.5 g/dL RAJI Comment:Testing performed by : [address], [facility], [address] Albumin 4.6 3.5 - 5.0 g/dL RAJI Comment:Testing performed by : [address], [address] Alk phos 55 40 - 130 Units/L RAJI Comment:Testing performed by : [address], [address] ALT 15 7 - 45 Units/L RAJI Comment:Testing performed by : [address], [address] AST 18 10 - 45 Units/L RAJI Comment:Testing performed by : [address], [address] Blood 11/26/2024 11:0 8 AM MOTORCYCLE BUILDER 11/26/2024 11:15 AM MOTORCYCLE BUILDER us Coy Brothers MD LAB BLOOD ORDERABLE S Final Result RAJI [address] [facility] Department of Laboratories [place], [place] [id number] from Last 3 Months Care Teams Ammonia Worker Relationship Specialty Start Date End Date No, Physician PCP - General 11/26/24
== END 2024-12-10 13:53 | disposition home or self-care (01) ==
PROVIDERS: Emergency Provider Student in an Organized Health Care Education/Training Program
DX: O20.9 Hemorrhage in early pregnancy, unspecified (principal); Z3A.01 Less than 8 weeks gestation of pregnancy
CPT/HCPCS: 36415; 76801; 80053; 84702; 85025; 85461; 85610; 85730; 86850; 86900; 86901; 99284